=== PATIENT | female | born 1965 | race Caucasian/White ===

== ENCOUNTER 2016-09-02 11:25 | Emergency (ER) | payer MEDICAID ==
[~2016-09-02] VITALS: Ht 152.4 cm; Wt 73.0 kg
[2016-09-02] MEDS ORDERED: KETOROLAC 60MG/2ML VIAL IM ONE (11:45)
[2016-09-02] MEDS ORDERED: DIAZEPAM 2 MG TABLET PO ONE (11:45)
[2016-09-02] MEDS ORDERED: PREDNISONE 20MG TABLET PO ONE (11:45)
[2016-09-02 13:28] VITALS: BP 118/63
== END 2016-09-02 13:29 | disposition home or self-care (01) ==
LOC: ER 11:56
DX: M54.30 Sciatica, unspecified side (principal); E11.9 Type 2 diabetes mellitus without complications; Z88.6 Allergy status to analgesic agent
CPT/HCPCS: 96372; 99283; J1885; J7512

== ENCOUNTER 2017-08-24 18:03 | Emergency (ER) | payer MEDICAID ==
[~2017-08-24] VITALS: Ht 152.4 cm; Wt 80.0 kg
[2017-08-25] MEDS ORDERED: SODIUM CHLORIDE 0.9% 1,000 ML IV ONE (00:31)
[2017-08-25] MEDS ORDERED: KETOROLAC 30MG/ML VIAL IV ONE (00:45)
[2017-08-25] MEDS ORDERED: METOCLOPRAMIDE HCL 10MG/2ML VIAL IV ONE (00:45)
[2017-08-25 00:48] LABS: BASOPHILS % 0.9 % (0.0-2.0); EOSINOPHILS % 2.7 % (0.0-5.0); HEMATOCRIT. 41.9 % (36.0-48.0); HEMOGLOBIN. 14.4 g/dL (12.0-16.0); LYMPHOCYTES % 41.9 % (20.0-50.0); MEAN CORPUSCULAR HEMOGLOBIN 30.1 pg (28.0-32.0); MEAN CORPUSCULAR VOLUME 87.3 fL (81.0-99.0); MEAN PLATELET VOLUME 9.8 fl (7.4-10.4); MONOCYTES % 7.2 % (2.0-8.0); NEUTROPHILS % 47.3 % (40.0-76.0); PLATELET 147 x1000/uL (130-400); RED CELL DISTRIBUTION WIDTH 13.4 % (11.6-14.6)
[2017-08-25 00:56] LABS: CHLORIDE 107 mEq/L (98-107)
[2017-08-25 00:57] LABS: PROTHROMBIN TIME 10.6 sec (9.4-11.6)
[2017-08-25 01:12] LABS: HCG SCREEN NEGATIVE
[2017-08-25 02:19] LABS: CLARITY URINE CLOUDY (CLEAR); COLOR URINE YELLOW (YELLOW); KETONES URINE NEGATIVE (NEGATIVE); LEUKOCYTE ESTERASE URINE NEGATIVE (NEGATIVE); NITRITE URINE NEGATIVE (NEGATIVE); OCCULT BLOOD URINE NEGATIVE (NEGATIVE); PROTEIN URINE NEGATIVE (NEGATIVE); SPECIFIC GRAVITY URINE 1.027 (1.005-1.030)
[2017-08-25 04:45] VITALS: BP 157/88
== END 2017-08-25 04:39 | disposition home or self-care (01) ==
LOC: ER 21:26
DX: R51 Headache (principal); R42 Dizziness and giddiness; E11.65 Type 2 diabetes mellitus with hyperglycemia; M54.30 Sciatica, unspecified side; Z88.6 Allergy status to analgesic agent; Z90.49 Acquired absence of other specified parts of digestive tract; Z90.710 Acquired absence of both cervix and uterus
CPT/HCPCS: 36415; 70450; 71045; 80053; 81003; 82962; 83690; 84703; 85025; 85610; 93005; 96361; 96374; 96375; 99285; J1885; J2765; J7030; Z7610